=== PATIENT | male | born 1935 | race Caucasian/White ===

== ENCOUNTER 2019-02-28 19:03 | Inpatient (IN) ==
[2019-02-28 19:52] LABS: Basophils # 0.1 10*3/uL (0.0-0.2); Basophils % 0.5 % (0.0-0.8); Eosinophils # 0.3 10*3/uL (0.0-0.87); Eosinophils % 1.7 % (0.00-10.9); Hematocrit 43.1 VOL% (42.0-52.0); Immature Granulocytes % 0.4 %; Immature Granulocytes Absolute 0.06 #; Lymphocytes # 1.5 10*3/uL (1.4-4.0); Lymphocytes % 10.1 % (21.2-54.2); Mean Corpuscular HGB Conc 32.5 GM/DL (32-36); Mean Corpuscular Volume 87.4 FL (87-102); Mean Platelet Volume 10.9 FL (9.6-12.0); Monocytes % 8.1 % (1.7-12.7); Neutrophils % 79.2 % (38.7-73.9); Platelet Count 166 T/CUMM (130-400); Red Blood Count 4.93 MC/CUMM (3.8-5.5); Red Cell Distribution Width 16.3 % (9.3-17.3); White Blood Count 15.1 T/CUMM (4-12)
[2019-02-28 20:14] LABS: Albumin 3.5 G/DL (3.4-5.0); Bilirubin,Total 0.8 MG/DL (0.2-1.0); Calcium 8.7 MG/DL (8.5-10.1); Osmolality,Calculated 282.5 MOS/KG (273-304); Total Protein 7.2 G/DL (6.4-8.3)
[2019-02-28 20:58] LABS: Apearance,Urine CLEAR (Clear); Bilirubin,Urine Negative (Negative); Blood, Urine Small mg/dL (Negative); Glucose,Urine (UA) Negative (Negative); Hyaline Casts,Urine 1 /LPF (0-3); Ketones,Urine 20 mg/dL (Negative); Mucus,Urine Occasional /LPF (Occasional); Nitrite,Urine Negative (Negative); Protein,Urine Negative; RBC,Urine 3 /HPF (0-4); Urine Color Yellow (Yellow); Urine Specific Gravity 1.021 (1.001-1.035); WBC,Urine 4 /HPF (0-6)
[2019-02-28] MEDS ORDERED: hydrALAZINE 20 MG/1 ML VIAL IV STA (21:10)
[2019-02-28] MEDS ORDERED: LEVOFLOXACIN INJ 500 MG in PREMIX 1 EACH IV STA (21:10)
[2019-02-28] MEDS ORDERED: ZALEPLON 5 MG CAPSULE PO PRN (22:54)
[2019-02-28] MEDS ORDERED: ONDANSETRON 4 MG/2 ML VIAL IV PRN (22:54)
[2019-02-28] MEDS ORDERED: guaiFENesin/DM ER 600-30 MG TABLET PO PRN (22:54)
[2019-03-01 06:20] LABS: Basophils # 0.1 10*3/uL (0.0-0.2); Basophils % 0.4 % (0.0-0.8); Eosinophils # 0.3 10*3/uL (0.0-0.87); Eosinophils % 2.5 % (0.00-10.9); Hematocrit 35.2 VOL% (42.0-52.0); Immature Granulocytes % 0.4 %; Immature Granulocytes Absolute 0.05 #; Lymphocytes # 1.8 10*3/uL (1.4-4.0); Lymphocytes % 14.3 % (21.2-54.2); Mean Corpuscular HGB Conc 33.2 GM/DL (32-36); Mean Corpuscular Volume 86.7 FL (87-102); Mean Platelet Volume 11.4 FL (9.6-12.0); Monocytes % 10.8 % (1.7-12.7); Neutrophils % 71.6 % (38.7-73.9); Platelet Count 161 T/CUMM (130-400); Red Blood Count 4.06 MC/CUMM (3.8-5.5); Red Cell Distribution Width 16.2 % (9.3-17.3); White Blood Count 12.4 T/CUMM (4-12)
[2019-03-01 06:21] LABS: Hemoglobin 11.7 GM/DL (14.0-18.0)
[2019-03-01 06:29] LABS: Albumin 2.8 G/DL (3.4-5.0); Bilirubin,Total 0.9 MG/DL (0.2-1.0); Calcium 8.5 MG/DL (8.5-10.1); Osmolality,Calculated 289.8 MOS/KG (273-304); Total Protein 6.1 G/DL (6.4-8.3)
[2019-03-01] MEDS: AZITHROMYCIN INJ 500 MG in SODIUM CHLORIDE 0.9% 250 ML IV SCH (07:28)
[2019-03-01] MEDS: ALBUTEROL/IPRATROPIUM 3 ML NEB RESP TX SCH ×3 (07:38→19:41)
[2019-03-01] MEDS ORDERED: MAGNESIUM SULF RIDER 4 GM in PREMIX 1 EACH IV PRN (08:46)
[2019-03-01] MEDS: ENOXAPARIN 40 MG/0.4 ML SYRINGE SUBCUT SCH (09:22)
[2019-03-01] MEDS: PANTOPRAZOLE 40 MG TABLET PO SCH (09:23)
[2019-03-01] MEDS: amLODIPine 5 MG TABLET PO SCH (09:23)
[2019-03-01] MEDS ORDERED: MELATONIN 3 MG TABLET PO PRN (09:46)
[2019-03-01] MEDS: MAGNESIUM SULF RIDER 2 GM in PREMIX 1 EACH IV PRN (10:48)
[2019-03-02] MEDS: ALBUTEROL/IPRATROPIUM 3 ML NEB RESP TX SCH ×4 (01:44→19:34)
[2019-03-02] MEDS: AZITHROMYCIN INJ 500 MG in SODIUM CHLORIDE 0.9% 250 ML IV SCH (06:02)
[2019-03-02] MEDS: amLODIPine 5 MG TABLET PO SCH (08:15)
[2019-03-02] MEDS: ENOXAPARIN 40 MG/0.4 ML SYRINGE SUBCUT SCH (08:15)
[2019-03-02] MEDS: PANTOPRAZOLE 40 MG TABLET PO SCH (08:15)
[2019-03-02] MEDS ORDERED: LORazepam 2 MG/1 ML VIAL IV ONE (12:57)
[2019-03-02] MEDS: ERGOCALCIFEROL 50,000 UNIT CAPSULE PO SCH (15:22)
[2019-03-02] MEDS ORDERED: HALOPERIDOL 5 MG/ML AMP IV ONE (18:12)
[2019-03-02] MEDS: MELATONIN 3 MG TABLET PO SCH (20:50)
[2019-03-03] MEDS: ALBUTEROL/IPRATROPIUM 3 ML NEB RESP TX SCH ×4 (00:25→20:25)
[2019-03-03 05:12] LABS: Basophils # 0.1 10*3/uL (0.0-0.2); Basophils % 0.5 % (0.0-0.8); Eosinophils # 0.6 10*3/uL (0.0-0.87); Eosinophils % 6.8 % (0.00-10.9); Hemoglobin 11.8 GM/DL (14.0-18.0); Immature Granulocytes % 0.5 %; Immature Granulocytes Absolute 0.05 #; Lymphocytes % 21.1 % (21.2-54.2); Mean Corpuscular HGB Conc 33.7 GM/DL (32-36); Mean Corpuscular Volume 85.2 FL (87-102); Mean Platelet Volume 11.5 FL (9.6-12.0); Monocytes % 11.1 % (1.7-12.7); Platelet Count 187 T/CUMM (130-400); Red Blood Count 4.11 MC/CUMM (3.8-5.5); Red Cell Distribution Width 15.7 % (9.3-17.3); White Blood Count 9.5 T/CUMM (4-12)
[2019-03-03 05:47] LABS: Calcium 8.4 MG/DL (8.5-10.1); Osmolality,Calculated 287.8 MOS/KG (273-304)
[2019-03-03] MEDS: AZITHROMYCIN INJ 500 MG in SODIUM CHLORIDE 0.9% 250 ML IV SCH (06:35)
[2019-03-03] MEDS: PANTOPRAZOLE 40 MG TABLET PO SCH (08:28)
[2019-03-03] MEDS: amLODIPine 5 MG TABLET PO SCH (08:28)
[2019-03-03] MEDS: MAGNESIUM SULF RIDER 2 GM in PREMIX 1 EACH IV PRN (15:58)
[2019-03-03] MEDS: MELATONIN 3 MG TABLET PO SCH (20:39)
[2019-03-03] MEDS: QUEtiapine 25 MG TABLET PO SCH (20:39)
[2019-03-03] MEDS: IBUPROFEN 400 MG TABLET PO PRN (20:39)
[2019-03-04] MEDS: ALBUTEROL/IPRATROPIUM 3 ML NEB RESP TX SCH ×4 (01:27→19:21)
[2019-03-04] MEDS: AZITHROMYCIN INJ 500 MG in SODIUM CHLORIDE 0.9% 250 ML IV SCH (06:38)
[2019-03-04] MEDS: PANTOPRAZOLE 40 MG TABLET PO SCH (09:35)
[2019-03-04] MEDS: amLODIPine 5 MG TABLET PO SCH (09:35)
[2019-03-04] MEDS: MELATONIN 3 MG TABLET PO SCH (21:02)
[2019-03-04] MEDS: QUEtiapine 25 MG TABLET PO SCH (21:03)
[2019-03-05] MEDS: ALBUTEROL/IPRATROPIUM 3 ML NEB RESP TX SCH ×4 (00:19→19:27)
[2019-03-05] MEDS: IBUPROFEN 400 MG TABLET PO PRN (00:25)
[2019-03-05] MEDS: amLODIPine 5 MG TABLET PO SCH (09:26)
[2019-03-05] MEDS: PANTOPRAZOLE 40 MG TABLET PO SCH (09:26)
[2019-03-05] MEDS ORDERED: MAGNESIUM SULF RIDER 2 GM in PREMIX 1 EACH IV ONE (10:49)
[2019-03-05] MEDS: AZITHROMYCIN 250 MG TABLET PO SCH (13:27)
[2019-03-05] MEDS: ERGOCALCIFEROL 50,000 UNIT CAPSULE PO SCH (13:30)
[2019-03-05] MEDS: ENOXAPARIN 40 MG/0.4 ML SYRINGE SUBCUT SCH (13:45)
[2019-03-05] MEDS ORDERED: QUEtiapine 25 MG TABLET PO SCH (21:00)
[2019-03-05] MEDS: MELATONIN 3 MG TABLET PO SCH (21:42)
[2019-03-06] MEDS: ALBUTEROL/IPRATROPIUM 3 ML NEB RESP TX SCH ×4 (00:30→20:28)
[2019-03-06 06:31] LABS: Calcium 8.2 MG/DL (8.5-10.1); Osmolality,Calculated 282.3 MOS/KG (273-304)
[2019-03-06] MEDS: AZITHROMYCIN 250 MG TABLET PO SCH (09:10)
[2019-03-06] MEDS: amLODIPine 5 MG TABLET PO SCH (09:11)
[2019-03-06] MEDS: PANTOPRAZOLE 40 MG TABLET PO SCH (09:11)
[2019-03-06] MEDS: ENOXAPARIN 40 MG/0.4 ML SYRINGE SUBCUT SCH (12:04)
[2019-03-06] MEDS ORDERED: QUEtiapine 25 MG TABLET PO SCH (12:23)
[2019-03-06] MEDS ORDERED: TUBERCULIN SKIN TEST 0.1 ML SYRINGE INTRADERM ONE (16:18)
[2019-03-06] MEDS: MELATONIN 3 MG TABLET PO SCH (21:40)
[2019-03-07] MEDS: ALBUTEROL/IPRATROPIUM 3 ML NEB RESP TX SCH ×4 (01:13→13:54)
[2019-03-07 06:09] LABS: Basophils # 0.1 10*3/uL (0.0-0.2); Basophils % 0.6 % (0.0-0.8); Eosinophils # 1.5 10*3/uL (0.0-0.87); Eosinophils % 15.1 % (0.00-10.9); Hematocrit 38.3 VOL% (42.0-52.0); Hemoglobin 12.6 GM/DL (14.0-18.0); Immature Granulocytes % 0.8 %; Immature Granulocytes Absolute 0.08 #; Lymphocytes # 1.8 10*3/uL (1.4-4.0); Lymphocytes % 18.1 % (21.2-54.2); Mean Corpuscular HGB Conc 32.9 GM/DL (32-36); Mean Corpuscular Volume 85.9 FL (87-102); Mean Platelet Volume 11.2 FL (9.6-12.0); Monocytes % 10.9 % (1.7-12.7); Neutrophils % 54.5 % (38.7-73.9); Platelet Count 171 T/CUMM (130-400); Red Blood Count 4.46 MC/CUMM (3.8-5.5); Red Cell Distribution Width 15.1 % (9.3-17.3); White Blood Count 10.2 T/CUMM (4-12)
[2019-03-07 06:24] LABS: Calcium 8.3 MG/DL (8.5-10.1); Osmolality,Calculated 278.5 MOS/KG (273-304)
[2019-03-07 06:31] LABS: Eosinophils 18 % (0-10); Hypochromasia 1+; Lymphocytes 23 % (20-55); Ovalocytes Slight; Platelet Estimate Adequate; Segmented Neutrophils 53 % (50-85); Total Cells Counted 100
[2019-03-07] MEDS ORDERED: POTASSIUM CHLORIDE 20 MEQ TABLET PO PRN (08:36)
[2019-03-07] MEDS: PANTOPRAZOLE 40 MG TABLET PO SCH (08:55)
[2019-03-07] MEDS: AZITHROMYCIN 250 MG TABLET PO SCH (08:56)
[2019-03-07] MEDS: amLODIPine 5 MG TABLET PO SCH (08:56)
[2019-03-07 11:52] VITALS: BP 120/71
[2019-03-07] MEDS ORDERED: POTASSIUM CHLORIDE 20 MEQ TABLET PO ONE (13:17)
[2019-03-07] MEDS ORDERED: DONEPEZIL 5 MG TABLET PO SCH (21:00)
== END 2019-03-07 16:42 | DRG 884 ==
LOC: EDBD → EDUNIT# → N.ED 19:03 → N.EDINP 22:54 → SUATTDRO 22:54 → N.EDINP 23:51 → N.5E 23:56
PROVIDERS: ADMIT Internal Medicine; ATTEND Internal Medicine

== ENCOUNTER 2019-06-20 15:44 | Inpatient (IN) ==
[2019-06-20 19:38] LABS: Apearance,Urine CLEAR (Clear); Bilirubin,Urine Negative (Negative); Blood, Urine Small mg/dL (Negative); Glucose,Urine (UA) Negative (Negative); Hyaline Casts,Urine 1 /LPF (0-3); Ketones,Urine Negative (Negative); Mucus,Urine Occasional /LPF (Occasional); Nitrite,Urine Negative (Negative); Protein,Urine Negative; RBC,Urine 1 /HPF (0-4); Urine Color Amber (Yellow); Urine Specific Gravity 1.017 (1.001-1.035); WBC,Urine 3 /HPF (0-6)
[2019-06-20] MEDS ORDERED: DILTIAZEM 50 MG/10 ML VIAL IV STA (19:38)
[2019-06-20 19:40] LABS: Barbiturates Screen,Urine Negative (Negative); Benzodiazepines Screen,Urine Negative (Negative); Cannabinoid Screen,Urine Negative (Negative); Opiate Screen,Urine Negative (Negative); Phencyclidine Screen,Urine Negative (Negative)
[2019-06-20 20:47] LABS: Basophils % 0.3 % (0.0-0.8); Eosinophils # 0.1 10*3/uL (0.0-0.87); Eosinophils % 1.2 % (0.00-10.9); Immature Granulocytes % 0.5 %; Immature Granulocytes Absolute 0.06 #; Lymphocytes % 25.9 % (21.2-54.2); Mean Corpuscular HGB Conc 36.3 GM/DL (32-36); Mean Corpuscular Volume 81.2 FL (87-102); Monocytes % 10.3 % (1.7-12.7); Neutrophils % 61.8 % (38.7-73.9); Red Cell Distribution Width 15.5 % (9.3-17.3)
[2019-06-20 20:55] LABS: Hemoglobin 12.7 GM/DL (14.0-18.0); Red Blood Count 4.31 MC/CUMM (3.8-5.5); White Blood Count 11.6 T/CUMM (4-12)
[2019-06-20 20:56] LABS: Platelet Count 210 T/CUMM (130-400)
[2019-06-20 21:02] LABS: Albumin 2.6 G/DL (3.4-5.0); Calcium 8.3 MG/DL (8.5-10.1); Osmolality,Calculated 286.8 MOS/KG (273-304); Total Protein 6.2 G/DL (6.4-8.3)
[2019-06-20 21:04] LABS: Troponin I 0.147 NG/ML (0.00-0.045)
[2019-06-20] MEDS ORDERED: SODIUM CHLORIDE 0.9% 1,000 ML IV STA (21:12)
[2019-06-20] MEDS ORDERED: GLUCAGON 1 MG VIAL IM PRN (21:45)
[2019-06-20] MEDS ORDERED: ONDANSETRON 4 MG/2 ML VIAL IV PRN (21:45)
[2019-06-20] MEDS ORDERED: ZALEPLON 5 MG CAPSULE PO PRN (21:53)
[2019-06-20] MEDS ORDERED: ALUMINUM/MAGNES/SIMETH MAX STR 30 ML UDCUP PO PRN (21:53)
[2019-06-20] MEDS ORDERED: DEXTROSE 10% 250 ML BAG IV PRN (21:53)
[2019-06-20] MEDS ORDERED: SODIUM CHLORIDE 0.9% 1,000 ML IV SCH (22:00)
[2019-06-20] MEDS: POTASSIUM CHLORIDE INJ 40 MEQ in SODIUM CHLORIDE 0.9% 1,000 ML IV SCH (23:04)
[2019-06-21 06:06] LABS: Basophils % 0.4 % (0.0-0.8); Eosinophils # 0.2 10*3/uL (0.0-0.87); Eosinophils % 1.8 % (0.00-10.9); Hemoglobin 12.6 GM/DL (14.0-18.0); Immature Granulocytes % 0.4 %; Immature Granulocytes Absolute 0.04 #; Lymphocytes # 2.6 10*3/uL (1.4-4.0); Lymphocytes % 27.6 % (21.2-54.2); Mean Corpuscular HGB Conc 34.1 GM/DL (32-36); Mean Corpuscular Volume 83.5 FL (87-102); Mean Platelet Volume 11.2 FL (9.6-12.0); Monocytes % 10.5 % (1.7-12.7); Neutrophils % 59.3 % (38.7-73.9); Platelet Count 210 T/CUMM (130-400); Red Blood Count 4.43 MC/CUMM (3.8-5.5); Red Cell Distribution Width 15.3 % (9.3-17.3); White Blood Count 9.3 T/CUMM (4-12)
[2019-06-21 06:54] LABS: Calcium 7.9 MG/DL (8.5-10.1); Osmolality,Calculated 294.1 MOS/KG (273-304); Risk Ratio 3.91; VLDL CHOLESTEROL 25.2 MG/DL
[2019-06-21] MEDS ORDERED: ENOXAPARIN 40 MG/0.4 ML SYRINGE SUBCUT SCH (09:00)
[2019-06-21] MEDS: SOTALOL 80 MG TABLET PO SCH ×2 (10:00→21:31)
[2019-06-21] MEDS: APIXABAN 2.5 MG TABLET PO SCH ×2 (10:00→21:31)
[2019-06-21] MEDS: LOSARTAN 50 MG TABLET PO SCH (10:00)
[2019-06-21] MEDS: PANTOPRAZOLE 40 MG TABLET PO SCH (10:00)
[2019-06-21] MEDS: ASPIRIN CHEW 81 MG TABLET PO SCH (10:00)
[2019-06-21] MEDS ORDERED: MAGNESIUM SULF RIDER 4 GM in PREMIX 1 EACH IV ONE (11:13)
[2019-06-21] MEDS ORDERED: POTASSIUM CHLORIDE 20 MEQ/15 ML UDCUP PO SCH (11:30)
[2019-06-21] MEDS ORDERED: POTASSIUM CHLORIDE 20 MEQ/15 ML UDCUP PO ONE (12:00)
[2019-06-21] MEDS: POTASSIUM CHLORIDE INJ 40 MEQ in SODIUM CHLORIDE 0.9% 1,000 ML IV SCH (15:02)
[2019-06-21] MEDS: DILTIAZEM 30 MG TABLET PO SCH ×3 (15:55→21:30)
[2019-06-21] MEDS ORDERED: POTASSIUM PHOSPHATE 15 MMOL in SODIUM CHLORIDE 0.9% 100 ML IV ONE (17:00)
[2019-06-21] MEDS: QUEtiapine 25 MG TABLET PO SCH (21:31)
[2019-06-21] MEDS: MEMANTINE 5 MG TABLET PO SCH (21:31)
[2019-06-22] MEDS: POTASSIUM CHLORIDE INJ 40 MEQ in SODIUM CHLORIDE 0.9% 1,000 ML IV SCH ×2 (06:14→17:36)
[2019-06-22 07:26] LABS: Albumin 2.4 G/DL (3.4-5.0); Bilirubin,Total 0.8 MG/DL (0.2-1.0); Calcium 8.5 MG/DL (8.5-10.1); Osmolality,Calculated 283.7 MOS/KG (273-304); Total Protein 6.1 G/DL (6.4-8.3)
[2019-06-22] MEDS: APIXABAN 2.5 MG TABLET PO SCH ×2 (10:23→20:24)
[2019-06-22] MEDS: MULTIVITAMIN (CENTRUM) TABLET PO SCH (10:23)
[2019-06-22] MEDS: LOSARTAN 50 MG TABLET PO SCH (10:23)
[2019-06-22] MEDS: PANTOPRAZOLE 40 MG TABLET PO SCH (10:23)
[2019-06-22] MEDS: QUEtiapine 25 MG TABLET PO SCH ×2 (10:23→20:24)
[2019-06-22] MEDS: SOTALOL 80 MG TABLET PO SCH ×2 (10:23→20:23)
[2019-06-22] MEDS: ASPIRIN CHEW 81 MG TABLET PO SCH (10:23)
[2019-06-22] MEDS: DILTIAZEM 30 MG TABLET PO SCH ×2 (10:23→13:18)
[2019-06-22] MEDS: MEMANTINE 5 MG TABLET PO SCH ×2 (10:24→20:24)
[2019-06-22] MEDS ORDERED: DILTIAZEM 60 MG TABLET PO SCH (15:16)
[2019-06-22] MEDS: SODIUM CHLOR 0.9% KCL 40 MEQ 40 MEQ/1,000 ML BAG IV SCH (17:45)
[2019-06-23] MEDS ORDERED: SODIUM CHLORIDE 0.9% 1,000 ML IV SCH (09:00)
[2019-06-23] MEDS: SODIUM CHLOR 0.9% KCL 40 MEQ 40 MEQ/1,000 ML BAG IV SCH (10:08)
[2019-06-23] MEDS: ASPIRIN CHEW 81 MG TABLET PO SCH (10:12)
[2019-06-23] MEDS: MEMANTINE 5 MG TABLET PO SCH ×2 (10:12→22:37)
[2019-06-23] MEDS: SOTALOL 80 MG TABLET PO SCH ×2 (10:12→22:37)
[2019-06-23] MEDS: PANTOPRAZOLE 40 MG TABLET PO SCH (10:12)
[2019-06-23] MEDS: APIXABAN 2.5 MG TABLET PO SCH ×2 (10:13→22:37)
[2019-06-23] MEDS: MULTIVITAMIN (CENTRUM) TABLET PO SCH (10:13)
[2019-06-23] MEDS: LOSARTAN 50 MG TABLET PO SCH (10:13)
[2019-06-23] MEDS: QUEtiapine 25 MG TABLET PO SCH ×2 (10:13→22:37)
[2019-06-23 13:12] LABS: Basophils % 0.2 % (0.0-0.8); Eosinophils # 0.1 10*3/uL (0.0-0.87); Eosinophils % 0.6 % (0.00-10.9); Hematocrit 39.3 VOL% (42.0-52.0); Hemoglobin 12.7 GM/DL (14.0-18.0); Immature Granulocytes % 0.5 %; Immature Granulocytes Absolute 0.06 #; Lymphocytes # 1.6 10*3/uL (1.4-4.0); Lymphocytes % 13.9 % (21.2-54.2); Mean Corpuscular HGB Conc 32.3 GM/DL (32-36); Mean Corpuscular Volume 88.3 FL (87-102); Mean Platelet Volume 11.2 FL (9.6-12.0); Monocytes % 9.7 % (1.7-12.7); Neutrophils % 75.1 % (38.7-73.9); Platelet Count 264 T/CUMM (130-400); Red Blood Count 4.45 MC/CUMM (3.8-5.5); Red Cell Distribution Width 16.8 % (9.3-17.3); White Blood Count 11.3 T/CUMM (4-12)
[2019-06-23 13:26] LABS: Calcium 8.9 MG/DL (8.5-10.1); Osmolality,Calculated 307.3 MOS/KG (273-304)
[2019-06-23] MEDS: DEXTROSE 5% NACL 0.45% 1,000 ML IV SCH (15:11)
[2019-06-23] MEDS ORDERED: SODIUM POLYSTYRENE SULFATE 15 GM/60 ML BOTTLE PO ONE (17:00)
[2019-06-23] MEDS: LOSARTAN 25 MG TABLET PO SCH (22:37)
[2019-06-24] MEDS: DEXTROSE 5% NACL 0.45% 1,000 ML IV SCH ×2 (04:51→18:02)
[2019-06-24] MEDS: PANTOPRAZOLE 40 MG TABLET PO SCH (09:29)
[2019-06-24] MEDS: MULTIVITAMIN (CENTRUM) TABLET PO SCH (09:29)
[2019-06-24] MEDS: SOTALOL 80 MG TABLET PO SCH ×2 (09:29→22:03)
[2019-06-24] MEDS: LOSARTAN 25 MG TABLET PO SCH ×2 (09:29→22:04)
[2019-06-24] MEDS: MEMANTINE 5 MG TABLET PO SCH ×2 (09:30→22:04)
[2019-06-24] MEDS: QUEtiapine 25 MG TABLET PO SCH ×2 (09:30→22:04)
[2019-06-24] MEDS: APIXABAN 2.5 MG TABLET PO SCH ×2 (09:30→22:04)
[2019-06-24] MEDS: ASPIRIN CHEW 81 MG TABLET PO SCH (09:30)
[2019-06-24 10:10] LABS: Calcium 8.7 MG/DL (8.5-10.1); Osmolality,Calculated 308.6 MOS/KG (273-304)
[2019-06-24 10:47] LABS: Basophils % 0.1 % (0.0-0.8); Eosinophils # 0.1 10*3/uL (0.0-0.87); Eosinophils % 0.6 % (0.00-10.9); Hematocrit 35.8 VOL% (42.0-52.0); Hemoglobin 11.8 GM/DL (14.0-18.0); Immature Granulocytes % 0.5 %; Immature Granulocytes Absolute 0.07 #; Lymphocytes # 1.7 10*3/uL (1.4-4.0); Lymphocytes % 12.2 % (21.2-54.2); Mean Corpuscular Volume 89.3 FL (87-102); Monocytes % 11.4 % (1.7-12.7); Neutrophils % 75.2 % (38.7-73.9); Platelet Count 274 T/CUMM (130-400); Red Blood Count 4.01 MC/CUMM (3.8-5.5); Red Cell Distribution Width 17.1 % (9.3-17.3); White Blood Count 14.3 T/CUMM (4-12)
[2019-06-25] MEDS: DEXTROSE 5% NACL 0.45% 1,000 ML IV SCH ×2 (06:58→21:51)
[2019-06-25] MEDS: PANTOPRAZOLE 40 MG TABLET PO SCH (08:43)
[2019-06-25] MEDS: MULTIVITAMIN (CENTRUM) TABLET PO SCH (08:43)
[2019-06-25] MEDS: SOTALOL 80 MG TABLET PO SCH ×2 (08:43→20:39)
[2019-06-25] MEDS: MEMANTINE 5 MG TABLET PO SCH ×2 (08:43→20:39)
[2019-06-25] MEDS: APIXABAN 2.5 MG TABLET PO SCH ×2 (08:43→20:39)
[2019-06-25] MEDS: QUEtiapine 25 MG TABLET PO SCH ×2 (08:44→20:39)
[2019-06-25] MEDS: ASPIRIN CHEW 81 MG TABLET PO SCH (09:14)
[2019-06-25] MEDS: LOSARTAN 25 MG TABLET PO SCH ×2 (09:14→20:39)
[2019-06-26 09:19] LABS: Basophils % 0.3 % (0.0-0.8); Eosinophils # 0.4 10*3/uL (0.0-0.87); Eosinophils % 3.4 % (0.00-10.9); Hematocrit 34.1 VOL% (42.0-52.0); Hemoglobin 11.3 GM/DL (14.0-18.0); Immature Granulocytes % 1.2 %; Immature Granulocytes Absolute 0.12 #; Lymphocytes # 1.9 10*3/uL (1.4-4.0); Lymphocytes % 18.1 % (21.2-54.2); Mean Corpuscular HGB Conc 33.1 GM/DL (32-36); Mean Corpuscular Volume 86.8 FL (87-102); Mean Platelet Volume 11.3 FL (9.6-12.0); Monocytes % 12.8 % (1.7-12.7); Neutrophils % 64.2 % (38.7-73.9); Platelet Count 229 T/CUMM (130-400); Red Blood Count 3.93 MC/CUMM (3.8-5.5); Red Cell Distribution Width 17.1 % (9.3-17.3); White Blood Count 10.4 T/CUMM (4-12)
[2019-06-26] MEDS: MULTIVITAMIN (CENTRUM) TABLET PO SCH ×2 (09:30→09:51)
[2019-06-26] MEDS: SOTALOL 80 MG TABLET PO SCH ×3 (09:30→21:30)
[2019-06-26] MEDS: PANTOPRAZOLE 40 MG TABLET PO SCH ×2 (09:30→09:51)
[2019-06-26] MEDS: QUEtiapine 25 MG TABLET PO SCH ×3 (09:30→21:30)
[2019-06-26] MEDS: APIXABAN 2.5 MG TABLET PO SCH ×3 (09:31→21:30)
[2019-06-26] MEDS: ASPIRIN CHEW 81 MG TABLET PO SCH ×2 (09:32→09:51)
[2019-06-26] MEDS: MEMANTINE 5 MG TABLET PO SCH ×3 (09:32→21:30)
[2019-06-26] MEDS: LOSARTAN 25 MG TABLET PO SCH ×3 (09:32→21:32)
[2019-06-26 09:34] LABS: Calcium 9.2 MG/DL (8.5-10.1); Osmolality,Calculated 300.3 MOS/KG (273-304)
[2019-06-26] MEDS: DEXTROSE 5% NACL 0.45% 1,000 ML IV SCH ×2 (09:51→15:38)
[2019-06-27] MEDS: DEXTROSE 5% NACL 0.45% 1,000 ML IV SCH ×3 (02:09→20:11)
[2019-06-27 07:48] LABS: Basophils % 0.3 % (0.0-0.8); Eosinophils # 0.3 10*3/uL (0.0-0.87); Eosinophils % 2.8 % (0.00-10.9); Hemoglobin 10.3 GM/DL (14.0-18.0); Immature Granulocytes % 0.6 %; Immature Granulocytes Absolute 0.07 #; Lymphocytes # 1.4 10*3/uL (1.4-4.0); Lymphocytes % 12.2 % (21.2-54.2); Mean Corpuscular HGB Conc 33.2 GM/DL (32-36); Mean Corpuscular Volume 86.1 FL (87-102); Mean Platelet Volume 11.2 FL (9.6-12.0); Monocytes % 12.3 % (1.7-12.7); Neutrophils % 71.8 % (38.7-73.9); Platelet Count 236 T/CUMM (130-400); Red Cell Distribution Width 16.7 % (9.3-17.3); White Blood Count 11.7 T/CUMM (4-12)
[2019-06-27 08:04] LABS: Calcium 8.3 MG/DL (8.5-10.1); Osmolality,Calculated 299.3 MOS/KG (273-304)
[2019-06-27] MEDS ORDERED: MAGNESIUM SULF RIDER 4 GM in PREMIX 1 EACH IV PRN (09:25)
[2019-06-27] MEDS: SOTALOL 80 MG TABLET PO SCH ×2 (10:09→21:56)
[2019-06-27] MEDS: PANTOPRAZOLE 40 MG TABLET PO SCH (10:09)
[2019-06-27] MEDS: MULTIVITAMIN (CENTRUM) TABLET PO SCH (10:10)
[2019-06-27] MEDS: LOSARTAN 25 MG TABLET PO SCH ×2 (10:10→21:58)
[2019-06-27] MEDS: ASPIRIN CHEW 81 MG TABLET PO SCH (10:10)
[2019-06-27] MEDS: APIXABAN 2.5 MG TABLET PO SCH ×2 (10:10→21:58)
[2019-06-27] MEDS: QUEtiapine 25 MG TABLET PO SCH ×2 (10:10→21:56)
[2019-06-27] MEDS: MEMANTINE 5 MG TABLET PO SCH ×2 (10:10→21:57)
[2019-06-27] MEDS: MAGNESIUM SULF RIDER 2 GM in PREMIX 1 EACH IV PRN (10:35)
[2019-06-27] MEDS: TAMSULOSIN 0.4 MG CAPSULE PO SCH (21:57)
[2019-06-28] MEDS ORDERED: LORazepam 2 MG/1 ML VIAL IV ONE (02:27)
[2019-06-28] MEDS: DEXTROSE 5% NACL 0.45% 1,000 ML IV SCH ×3 (05:49→16:46)
[2019-06-28 06:30] LABS: Basophils % 0.2 % (0.0-0.8); Eosinophils # 0.2 10*3/uL (0.0-0.87); Hematocrit 29.4 VOL% (42.0-52.0); Hemoglobin 9.7 GM/DL (14.0-18.0); Immature Granulocytes % 0.6 %; Immature Granulocytes Absolute 0.06 #; Lymphocytes # 1.8 10*3/uL (1.4-4.0); Lymphocytes % 17.7 % (21.2-54.2); Mean Corpuscular Volume 86.2 FL (87-102); Mean Platelet Volume 11.5 FL (9.6-12.0); Monocytes % 12.7 % (1.7-12.7); Neutrophils % 66.8 % (38.7-73.9); Platelet Count 208 T/CUMM (130-400); Red Blood Count 3.41 MC/CUMM (3.8-5.5); Red Cell Distribution Width 16.7 % (9.3-17.3); White Blood Count 10.1 T/CUMM (4-12)
[2019-06-28 07:32] LABS: Calcium 8.4 MG/DL (8.5-10.1); Osmolality,Calculated 297.5 MOS/KG (273-304)
[2019-06-28] MEDS: PANTOPRAZOLE 40 MG TABLET PO SCH (10:40)
[2019-06-28] MEDS: SOTALOL 80 MG TABLET PO SCH ×2 (10:40→20:59)
[2019-06-28] MEDS: QUEtiapine 25 MG TABLET PO SCH ×2 (10:40→20:59)
[2019-06-28] MEDS: MULTIVITAMIN (CENTRUM) TABLET PO SCH (10:40)
[2019-06-28] MEDS: APIXABAN 2.5 MG TABLET PO SCH ×2 (10:41→21:00)
[2019-06-28] MEDS: ASPIRIN CHEW 81 MG TABLET PO SCH (10:41)
[2019-06-28] MEDS: LOSARTAN 25 MG TABLET PO SCH ×2 (10:41→21:01)
[2019-06-28] MEDS: MEMANTINE 5 MG TABLET PO SCH ×2 (10:41→21:00)
[2019-06-28] MEDS: TAMSULOSIN 0.4 MG CAPSULE PO SCH (20:59)
[2019-06-29] MEDS: DEXTROSE 5% NACL 0.45% 1,000 ML IV SCH ×3 (03:52→16:45)
[2019-06-29 06:38] LABS: Basophils % 0.2 % (0.0-0.8); Eosinophils # 0.2 10*3/uL (0.0-0.87); Eosinophils % 2.8 % (0.00-10.9); Hematocrit 29.5 VOL% (42.0-52.0); Hemoglobin 9.5 GM/DL (14.0-18.0); Immature Granulocytes % 0.9 %; Immature Granulocytes Absolute 0.08 #; Lymphocytes # 1.2 10*3/uL (1.4-4.0); Lymphocytes % 14.6 % (21.2-54.2); Mean Corpuscular HGB Conc 32.2 GM/DL (32-36); Mean Corpuscular Volume 89.7 FL (87-102); Mean Platelet Volume 10.8 FL (9.6-12.0); Monocytes % 11.5 % (1.7-12.7); Platelet Count 186 T/CUMM (130-400); Red Blood Count 3.29 MC/CUMM (3.8-5.5); White Blood Count 8.5 T/CUMM (4-12)
[2019-06-29 07:28] LABS: Calcium 8.4 MG/DL (8.5-10.1); Osmolality,Calculated 300.3 MOS/KG (273-304)
[2019-06-29] MEDS: QUEtiapine 25 MG TABLET PO SCH ×2 (08:44→21:01)
[2019-06-29] MEDS: LOSARTAN 25 MG TABLET PO SCH ×2 (08:44→21:01)
[2019-06-29] MEDS: MULTIVITAMIN (CENTRUM) TABLET PO SCH (08:45)
[2019-06-29] MEDS: ASPIRIN CHEW 81 MG TABLET PO SCH (08:45)
[2019-06-29] MEDS: MEMANTINE 5 MG TABLET PO SCH ×2 (08:45→21:00)
[2019-06-29] MEDS: APIXABAN 2.5 MG TABLET PO SCH ×2 (08:45→21:00)
[2019-06-29] MEDS: SOTALOL 80 MG TABLET PO SCH ×2 (08:45→21:01)
[2019-06-29] MEDS: PANTOPRAZOLE 40 MG TABLET PO SCH (08:45)
[2019-06-29] MEDS: MAGNESIUM SULF RIDER 2 GM in PREMIX 1 EACH IV PRN (13:53)
[2019-06-29] MEDS: TAMSULOSIN 0.4 MG CAPSULE PO SCH (21:00)
[2019-06-30] MEDS: DEXTROSE 5% NACL 0.45% 1,000 ML IV SCH ×2 (05:06→18:23)
[2019-06-30 05:38] LABS: Basophils % 0.2 % (0.0-0.8); Eosinophils # 0.3 10*3/uL (0.0-0.87); Eosinophils % 3.3 % (0.00-10.9); Hematocrit 29.2 VOL% (42.0-52.0); Hemoglobin 9.4 GM/DL (14.0-18.0); Immature Granulocytes % 0.7 %; Immature Granulocytes Absolute 0.06 #; Lymphocytes # 1.3 10*3/uL (1.4-4.0); Lymphocytes % 15.2 % (21.2-54.2); Mean Corpuscular HGB Conc 32.2 GM/DL (32-36); Mean Corpuscular Volume 89.6 FL (87-102); Mean Platelet Volume 11.3 FL (9.6-12.0); Monocytes % 10.8 % (1.7-12.7); Neutrophils % 69.8 % (38.7-73.9); Platelet Count 204 T/CUMM (130-400); Red Blood Count 3.26 MC/CUMM (3.8-5.5); Red Cell Distribution Width 16.7 % (9.3-17.3); White Blood Count 8.4 T/CUMM (4-12)
[2019-06-30 06:17] LABS: Calcium 8.7 MG/DL (8.5-10.1); Osmolality,Calculated 295.5 MOS/KG (273-304)
[2019-06-30] MEDS: LOSARTAN 25 MG TABLET PO SCH ×2 (08:32→21:05)
[2019-06-30] MEDS: APIXABAN 2.5 MG TABLET PO SCH ×2 (08:33→21:06)
[2019-06-30] MEDS: SOTALOL 80 MG TABLET PO SCH ×2 (08:33→21:05)
[2019-06-30] MEDS: MEMANTINE 5 MG TABLET PO SCH ×2 (08:33→21:06)
[2019-06-30] MEDS: QUEtiapine 25 MG TABLET PO SCH ×2 (08:33→21:06)
[2019-06-30] MEDS: ASPIRIN CHEW 81 MG TABLET PO SCH (08:33)
[2019-06-30] MEDS: PANTOPRAZOLE 40 MG TABLET PO SCH (08:33)
[2019-06-30] MEDS: MULTIVITAMIN (CENTRUM) TABLET PO SCH (08:34)
[2019-06-30] MEDS: TAMSULOSIN 0.4 MG CAPSULE PO SCH (21:06)
[2019-07-01] MEDS: DEXTROSE 5% NACL 0.45% 1,000 ML IV SCH (07:40)
[2019-07-01] MEDS: QUEtiapine 25 MG TABLET PO SCH (08:18)
[2019-07-01] MEDS: ASPIRIN CHEW 81 MG TABLET PO SCH (08:18)
[2019-07-01] MEDS: PANTOPRAZOLE 40 MG TABLET PO SCH (08:19)
[2019-07-01] MEDS: APIXABAN 2.5 MG TABLET PO SCH (08:19)
[2019-07-01] MEDS: SOTALOL 80 MG TABLET PO SCH (08:19)
[2019-07-01] MEDS: MEMANTINE 5 MG TABLET PO SCH (08:19)
[2019-07-01] MEDS: LOSARTAN 25 MG TABLET PO SCH (08:19)
[2019-07-01] MEDS: MULTIVITAMIN (CENTRUM) TABLET PO SCH (08:19)
[2019-07-01 08:20] LABS: Basophils % 0.3 % (0.0-0.8); Eosinophils # 0.3 10*3/uL (0.0-0.87); Eosinophils % 3.1 % (0.00-10.9); Hematocrit 31.8 VOL% (42.0-52.0); Immature Granulocytes % 0.5 %; Immature Granulocytes Absolute 0.04 #; Lymphocytes # 1.4 10*3/uL (1.4-4.0); Lymphocytes % 17.6 % (21.2-54.2); Mean Corpuscular HGB Conc 31.4 GM/DL (32-36); Mean Corpuscular Volume 91.1 FL (87-102); Mean Platelet Volume 10.8 FL (9.6-12.0); Monocytes % 12.7 % (1.7-12.7); Neutrophils % 65.8 % (38.7-73.9); Platelet Count 210 T/CUMM (130-400); Red Blood Count 3.49 MC/CUMM (3.8-5.5); Red Cell Distribution Width 16.9 % (9.3-17.3)
[2019-07-01 08:49] LABS: Calcium 8.7 MG/DL (8.5-10.1); Osmolality,Calculated 296.3 MOS/KG (273-304)
[2019-07-01 11:51] VITALS: BP 117/60
== END 2019-07-01 13:26 | DRG 57 ==
LOC: EDBD → EDUNIT# → N.EDINP 15:44 → N.ED 15:44 → SUATTDRO 21:45 → N.TELES 22:03 → SUATTDRO 06-23 13:59
PROVIDERS: ADMIT Internal Medicine; ATTEND Internal Medicine Geriatric Medicine

== ENCOUNTER 2019-08-07 08:54 | Inpatient (IN) ==
[2019-08-07] MEDS ORDERED: SODIUM CHLORIDE 0.9% 1,000 ML IV STA ×2 (09:38→11:37)
[2019-08-07 10:07] LABS: Basophils % 0.1 % (0.0-0.8); Eosinophils # 0.1 10*3/uL (0.0-0.87); Eosinophils % 1.7 % (0.00-10.9); Hematocrit 34.4 VOL% (42.0-52.0); Hemoglobin 10.5 GM/DL (14.0-18.0); Immature Granulocytes % 0.5 %; Immature Granulocytes Absolute 0.04 #; Lymphocytes # 1.8 10*3/uL (1.4-4.0); Lymphocytes % 22.5 % (21.2-54.2); Mean Corpuscular HGB Conc 30.5 GM/DL (32-36); Mean Corpuscular Volume 93.7 FL (87-102); Monocytes % 8.3 % (1.7-12.7); NRBC # 0.02 10*3/uL; Neutrophils % 66.9 % (38.7-73.9); Platelet Count 141 T/CUMM (130-400); Red Blood Count 3.67 MC/CUMM (3.8-5.5); Red Cell Distribution Width 18.5 % (9.3-17.3); White Blood Count 8.1 T/CUMM (4-12)
[2019-08-07 10:24] LABS: Albumin 2.7 G/DL (3.4-5.0); Bilirubin,Total 0.4 MG/DL (0.2-1.0); Calcium 8.8 MG/DL (8.5-10.1); Osmolality,Calculated 338.2 MOS/KG (273-304); Total Protein 6.5 G/DL (6.4-8.3)
[2019-08-07 11:05] LABS: Amorphous Crystals,Urine Few /HPF (Few); Apearance,Urine Slightly Hazy (Clear); Bacteria,Urine Occasional /HPF (Few); Bilirubin,Urine Negative (Negative); Blood, Urine Large mg/dL (Negative); Glucose,Urine (UA) Negative (Negative); Hyaline Casts,Urine 1 /LPF (0-3); Ketones,Urine Negative (Negative); Mucus,Urine Few /LPF (Occasional); Nitrite,Urine Negative (Negative); Protein,Urine Negative; RBC,Urine 2 /HPF (0-4); Urine Color Amber (Yellow); Urine Specific Gravity 1.015 (1.001-1.035); Urine Urobilinogen < 2.0 EU/DL (0.2-1.0); WBC,Urine 2 /HPF (0-6)
[2019-08-07] MEDS ORDERED: ONDANSETRON 4 MG/2 ML VIAL IV PRN (11:56)
[2019-08-07] MEDS ORDERED: LACTULOSE 20 GM/30 ML UDCUP PO PRN (11:56)
[2019-08-07] MEDS ORDERED: DOCUSATE SODIUM 100 MG CAPSULE PO PRN (11:56)
[2019-08-07] MEDS ORDERED: GLUCAGON 1 MG VIAL IM PRN (11:56)
[2019-08-07] MEDS ORDERED: DEXTROSE 50% 25 GM/50 ML VIAL IV PRN (11:56)
[2019-08-07] MEDS ORDERED: ENOXAPARIN 30 MG/0.3 ML SYRINGE SUBCUT SCH (12:00)
[2019-08-07] MEDS ORDERED: cefTRIAXone 1,000 MG in SODIUM CHLORIDE 0.9% 100 ML IV STA (12:01)
[2019-08-07] MEDS: SODIUM CHLORIDE 0.9% 1,000 ML IV SCH ×2 (14:53→20:40)
[2019-08-08] MEDS: SODIUM CHLORIDE 0.9% 1,000 ML IV SCH ×2 (02:45→19:19)
[2019-08-08 05:39] LABS: Basophils % 0.1 % (0.0-0.8); Eosinophils # 0.2 10*3/uL (0.0-0.87); Eosinophils % 2.3 % (0.00-10.9); Hematocrit 27.5 VOL% (42.0-52.0); Hemoglobin 8.5 GM/DL (14.0-18.0); Immature Granulocytes % 0.4 %; Immature Granulocytes Absolute 0.03 #; Lymphocytes # 1.7 10*3/uL (1.4-4.0); Lymphocytes % 22.1 % (21.2-54.2); Mean Corpuscular HGB Conc 30.9 GM/DL (32-36); Mean Corpuscular Volume 93.5 FL (87-102); Mean Platelet Volume 11.6 FL (9.6-12.0); Monocytes % 9.7 % (1.7-12.7); Neutrophils % 65.4 % (38.7-73.9); Platelet Count 120 T/CUMM (130-400); Red Blood Count 2.94 MC/CUMM (3.8-5.5); Red Cell Distribution Width 18.3 % (9.3-17.3); White Blood Count 7.5 T/CUMM (4-12)
[2019-08-08 06:31] LABS: Albumin 2.3 G/DL (3.4-5.0); Bilirubin,Total 0.4 MG/DL (0.2-1.0); CKMB % 4.8 %; Osmolality,Calculated 340.6 MOS/KG (273-304); Risk Ratio 3.87; Total Protein 5.4 G/DL (6.4-8.3); Troponin I 0.02 NG/ML (0.00-0.045); VLDL CHOLESTEROL 25.6 MG/DL
[2019-08-08] MEDS: PANTOPRAZOLE 40 MG TABLET PO SCH ×2 (08:47→08:50)
[2019-08-08] MEDS: APIXABAN 2.5 MG TABLET PO SCH ×2 (12:06→20:44)
[2019-08-08] MEDS: DEXTROSE 5% NACL 0.45% 1,000 ML IV SCH ×3 (12:07→23:15)
[2019-08-08] MEDS ORDERED: cefTRIAXone 1,000 MG in SYRINGE 1 EACH IV SCH (14:00)
[2019-08-08] MEDS: cefTRIAXone 1,000 MG in SYRINGE 1 EACH IV SCH (14:57)
[2019-08-08] MEDS: LOSARTAN 25 MG TABLET PO SCH (19:19)
[2019-08-08] MEDS: SOTALOL 80 MG TABLET PO SCH ×2 (19:19→20:44)
[2019-08-08] MEDS: TAMSULOSIN 0.4 MG CAPSULE PO SCH (20:44)
[2019-08-09] MEDS: DEXTROSE 5% NACL 0.45% 1,000 ML IV SCH ×4 (04:49→21:54)
[2019-08-09 06:20] LABS: Basophils % 0.1 % (0.0-0.8); Eosinophils # 0.1 10*3/uL (0.0-0.87); Eosinophils % 1.2 % (0.00-10.9); Hematocrit 26.9 VOL% (42.0-52.0); Hemoglobin 8.5 GM/DL (14.0-18.0); Immature Granulocytes % 0.3 %; Immature Granulocytes Absolute 0.04 #; Lymphocytes # 1.6 10*3/uL (1.4-4.0); Lymphocytes % 13.2 % (21.2-54.2); Mean Corpuscular HGB Conc 31.6 GM/DL (32-36); Mean Corpuscular Volume 91.8 FL (87-102); Mean Platelet Volume 11.1 FL (9.6-12.0); Monocytes % 5.3 % (1.7-12.7); Neutrophils % 79.9 % (38.7-73.9); Platelet Count 113 T/CUMM (130-400); Red Blood Count 2.93 MC/CUMM (3.8-5.5); Red Cell Distribution Width 18.2 % (9.3-17.3); White Blood Count 11.7 T/CUMM (4-12)
[2019-08-09 06:49] LABS: Alanine Aminotransferase 32 U/L (16-61); Albumin 2.1 G/DL (3.4-5.0); Alkaline Phosphatase 94 U/L (45-117); Aspartate Amino Transferase 28 U/L (0-37); Blood Urea Nitrogen 72 MG/DL (7-18); CKMB % 4.7 %; Calcium 7.9 MG/DL (8.5-10.1); Estimated Glom Filtration Rate 36 ML/MIN; Glucose 174 MG/DL (74-106); Osmolality,Calculated 333.2 MOS/KG (273-304); Total Protein 5.1 G/DL (6.4-8.3); Troponin I < 0.015 NG/ML (0.00-0.045)
[2019-08-09] MEDS: PANTOPRAZOLE 40 MG TABLET PO SCH (09:05)
[2019-08-09] MEDS: APIXABAN 2.5 MG TABLET PO SCH ×2 (09:05→20:05)
[2019-08-09] MEDS: SOTALOL 80 MG TABLET PO SCH ×2 (09:05→20:05)
[2019-08-09] MEDS: LOSARTAN 25 MG TABLET PO SCH (09:05)
[2019-08-09] MEDS: ASPIRIN CHEW 81 MG TABLET PO SCH (09:05)
[2019-08-09] MEDS: cefTRIAXone 1,000 MG in SYRINGE 1 EACH IV SCH (13:40)
[2019-08-09] MEDS: TAMSULOSIN 0.4 MG CAPSULE PO SCH (20:05)
[2019-08-10] MEDS: DEXTROSE 5% NACL 0.45% 1,000 ML IV SCH ×3 (03:40→17:20)
[2019-08-10 05:40] LABS: Basophils % 0.4 % (0.0-0.8); Eosinophils # 0.5 10*3/uL (0.0-0.87); Eosinophils % 4.3 % (0.00-10.9); Hematocrit 28.9 VOL% (42.0-52.0); Immature Granulocytes % 0.4 %; Immature Granulocytes Absolute 0.05 #; Lymphocytes # 1.5 10*3/uL (1.4-4.0); Lymphocytes % 13.5 % (21.2-54.2); Mean Corpuscular HGB Conc 31.1 GM/DL (32-36); Mean Corpuscular Volume 93.8 FL (87-102); Mean Platelet Volume 11.7 FL (9.6-12.0); Monocytes % 8.5 % (1.7-12.7); Neutrophils % 72.9 % (38.7-73.9); Platelet Count 113 T/CUMM (130-400); Red Blood Count 3.08 MC/CUMM (3.8-5.5); Red Cell Distribution Width 18.4 % (9.3-17.3); White Blood Count 11.1 T/CUMM (4-12)
[2019-08-10 06:54] LABS: Alanine Aminotransferase 33 U/L (16-61); Alkaline Phosphatase 100 U/L (45-117); Aspartate Amino Transferase 69 U/L (0-37); Blood Urea Nitrogen 48 MG/DL (7-18); Calcium 7.8 MG/DL (8.5-10.1); Estimated Glom Filtration Rate 55 ML/MIN; Glucose 111 MG/DL (74-106); Total Protein 5.3 G/DL (6.4-8.3); Troponin I < 0.015 NG/ML (0.00-0.045)
[2019-08-10 07:09] LABS: CKMB % 1.9 %
[2019-08-10] MEDS: APIXABAN 2.5 MG TABLET PO SCH ×2 (10:53→21:06)
[2019-08-10] MEDS: PANTOPRAZOLE 40 MG TABLET PO SCH (10:53)
[2019-08-10] MEDS: SOTALOL 80 MG TABLET PO SCH ×2 (10:53→21:06)
[2019-08-10] MEDS: ASPIRIN CHEW 81 MG TABLET PO SCH (10:53)
[2019-08-10] MEDS ORDERED: SODIUM BICARBONATE 650 MG TABLET PO SCH (21:00)
[2019-08-10] MEDS: TAMSULOSIN 0.4 MG CAPSULE PO SCH (21:06)
[2019-08-11] MEDS: DEXTROSE 5% NACL 0.45% 1,000 ML IV SCH ×2 (00:03→05:49)
[2019-08-11 06:29] LABS: Basophils % 0.2 % (0.0-0.8); Eosinophils # 0.4 10*3/uL (0.0-0.87); Hematocrit 27.2 VOL% (42.0-52.0); Hemoglobin 8.7 GM/DL (14.0-18.0); Immature Granulocytes % 0.7 %; Immature Granulocytes Absolute 0.06 #; Lymphocytes # 1.2 10*3/uL (1.4-4.0); Lymphocytes % 15.2 % (21.2-54.2); Mean Platelet Volume 11.4 FL (9.6-12.0); NRBC # 0.02 10*3/uL; Neutrophils % 69.9 % (38.7-73.9); Platelet Count 101 T/CUMM (130-400); Red Blood Count 2.99 MC/CUMM (3.8-5.5); Red Cell Distribution Width 17.8 % (9.3-17.3); White Blood Count 8.2 T/CUMM (4-12)
[2019-08-11 06:38] LABS: Hypochromasia 1+; Microcytosis 1+; Ovalocytes Slight
[2019-08-11 06:39] LABS: Platelet Estimate Decreased
[2019-08-11 06:45] LABS: Albumin 1.9 G/DL (3.4-5.0); Bilirubin,Total 0.6 MG/DL (0.2-1.0); Calcium 7.6 MG/DL (8.5-10.1); Osmolality,Calculated 301.1 MOS/KG (273-304); Total Protein 5.1 G/DL (6.4-8.3)
[2019-08-11] MEDS ORDERED: POTASSIUM CHLORIDE 20 MEQ TABLET PO ONE (07:12)
[2019-08-11] MEDS: SOTALOL 80 MG TABLET PO SCH ×2 (08:54→22:12)
[2019-08-11] MEDS: PANTOPRAZOLE 40 MG TABLET PO SCH (08:54)
[2019-08-11] MEDS: APIXABAN 2.5 MG TABLET PO SCH ×2 (08:55→22:13)
[2019-08-11] MEDS: ASPIRIN CHEW 81 MG TABLET PO SCH (08:55)
[2019-08-11] MEDS: DEXTROSE 5% NACL 0.22% 1,000 ML IV SCH (12:06)
[2019-08-11] MEDS: ALBUTEROL/IPRATROPIUM 3 ML NEB RESP TX SCH ×2 (13:14→19:35)
[2019-08-11] MEDS: PIPERACILLIN/TAZOBACTAM 3,375 MG in SODIUM CHLORIDE 0.9% 100 ML IV SCH ×2 (14:45→23:45)
[2019-08-11] MEDS: TAMSULOSIN 0.4 MG CAPSULE PO SCH (22:13)
[2019-08-12] MEDS: ALBUTEROL/IPRATROPIUM 3 ML NEB RESP TX SCH ×3 (00:58→13:10)
[2019-08-12] MEDS: PIPERACILLIN/TAZOBACTAM 3,375 MG in SODIUM CHLORIDE 0.9% 100 ML IV SCH ×2 (05:53→16:49)
[2019-08-12 08:05] LABS: Calcium 7.6 MG/DL (8.5-10.1); Osmolality,Calculated 297.3 MOS/KG (273-304)
[2019-08-12] MEDS: SOTALOL 80 MG TABLET PO SCH (09:58)
[2019-08-12] MEDS: ASPIRIN CHEW 81 MG TABLET PO SCH (09:58)
[2019-08-12] MEDS: PANTOPRAZOLE 40 MG TABLET PO SCH (09:58)
[2019-08-12] MEDS: APIXABAN 2.5 MG TABLET PO SCH (09:58)
[2019-08-12] MEDS: DEXTROSE 5% NACL 0.22% 1,000 ML IV SCH ×2 (14:37)
[2019-08-12 16:44] VITALS: BP 116/54
== END 2019-08-12 16:40 | disposition hospice, home (50) | DRG 682 ==
LOC: N.ED 08:54 → N.EDINP 11:56 → SUATTDRO 11:56 → N.TELES 14:30
PROVIDERS: ADMIT Emergency Medicine; ATTEND Internal Medicine